=== PATIENT | female | born 1975 | race African-American/Black ===

== ENCOUNTER 2018-09-01 15:56 | Emergency (ER) | payer MEDICAID, SELFPAY ==
--- NOTE | 2018-09-01 16:38 | RAD ---
RIGHT WRIST 3 VIEWS: Date: 09/01/18 INDICATION: Injury to right wrist with pain. FINDINGS: Carpals appear intact. No evidence of fracture identified. IMPRESSION: No definite fracture identified. POS: [facility]
== END 2018-09-01 17:01 | disposition home or self-care (01) ==
LOC: NAV ERS 15:56
DX: S63.501A Unspecified sprain of right wrist, initial encounter (principal); I10 Essential (primary) hypertension; Z79.899 Other long term (current) drug therapy; W23.0XXA Caught, crushed, jammed, or pinched between moving objects, initial encounter

== ENCOUNTER 2023-08-30 12:41 | Emergency (ER) | payer BC | END 2023-08-30 13:20 | disposition home or self-care (01) | LOC: NAV ERS 12:41 | DX: S39.012A Strain of muscle, fascia and tendon of lower back, initial encounter (principal); M62.838 Other muscle spasm; I10 Essential (primary) hypertension; X58.XXXA Exposure to other specified factors, initial encounter | CPT/HCPCS: 99283 ==

== ENCOUNTER 2024-01-07 20:22 | Emergency (ER) | payer BC ==
[2024-01-07] MEDS ORDERED: Ketorolac Tromethamine 60 MG/2 ML VIAL ONE (21:36)
[2024-01-07] MEDS ORDERED: Cephalexin 250 MG CAP ONE (21:36)
[2024-01-07] MEDS ORDERED: traMADol HCl 50 MG TAB ONE ×2 (21:37→21:38)
== END 2024-01-07 22:05 | disposition home or self-care (01) ==
LOC: NAV ERS 20:22
DX: K08.89 Other specified disorders of teeth and supporting structures (principal); K02.9 Dental caries, unspecified; I10 Essential (primary) hypertension; Z79.899 Other long term (current) drug therapy
CPT/HCPCS: 96372; 99283; J1885